=== PATIENT | male | born 1985 | race Two or more races ===

== ENCOUNTER 2023-10-26 12:03 | Emergency (ER) | payer OTHER, SELFPAY ==
--- NOTE | ~2023-10-26 | XR_ITS ---
EXAMINATION: XR HAND, LEFT CLINICAL INFORMATION: Left second metacarpophalangeal swelling. Cat bite. COMPARISON: None available. TECHNIQUE: PA, lateral, and oblique views of the left hand. FINDINGS: Mild soft tissue swelling of the second digit. No radiopaque foreign body or abnormal soft tissue calcification. No acute fracture or dislocation. Normal carpal alignment. No concerning lytic or blastic osseous lesion. No periosteal reaction or cortical erosion. XR/XR hand LT min 3V IMPRESSION: Mild soft tissue swelling of the second digit. No radiopaque foreign body or abnormal soft tissue calcification.
[2023-10-26 12:42] VITALS: BP 146/85; PULSE 100; RESP 16; TEMP 37.1; O2SAT 99; BMI 25.3
--- NOTE | 2023-10-26 12:43 | ED_ITS ---
HPI - General Adult General Chief complaint: Animal Bite Stated complaint: Cat bite Time Seen by Provider: 10/26/23 15:41 Source: patient Mode of arrival: ambulatory Limitations: no limitations History of Present Illness HPI narrative: Patient is a 38 year old assigned male at with no reported medical history presenting to the emergency department today with bilateral hand cat bites and scratches. Patient states that on 10/24/2023 he was bit and scratched by a cat on both hands. Patient states that he does not know if he is up to date on tetanus and if the cat is up to date on rabies. Patient denies any dizziness, lightheadedness, abdominal pain, nausea, vomiting, fever, chills, blurry vision, double vision, loss of vision, chest pain, difficulty breathing, shortness of breath, back pain, night sweats, pain with urination, increased urinary frequency, increased urinary urgency, blood in his urine or stool, syncope or a near syncopal episode, bowel incontinence, bladder incontinence, bowel retentio n, bladder retention, or any other complaints at this time. Onset (ago): day(s) (2) Location: left, right and upper extremity Severity: mild Severity scale (1-10): 4 Quality: aching and dull Pain Consistency: constant Relieving factors: none Exacerbating factors: none Associated symptoms: denies other symptoms Treatments prior to arrival: none Related Data Previous Rx's ?Medication ?Instructions ?Recorded amoxicillin 875 mg-potassium 1 tab PO BID 10 days #20 tabs 10/26/23 clavulanate 125 mg tablet Allergies Allergy/AdvReac Type Severity Reaction Status Date / Time No Known Allergies Allergy Verified 10/26/23 12:46 Review of Systems Constitutional: Constitutional: Reports no additional constitutional complaints, Denies chills, Denies fever(s) and Denies night sweats Eyes: Eyes: Reports no additional eye complaints, Denies blurry vision, Denies change in vision, Denies diplopia, Denies eye discharge, Denies loss of vision and Denies eye pain ENT: Denies dizziness Cardiovascular: Cardiovascular: Reports no additional cardiovascular complaints, Denies chest pain, Denies lightheadedness, Denies Loss of Consciousness and Denies dyspnea Respiratory: Respiratory: Reports no additional respiratory complaints and Denies dyspnea Gastrointestinal: Gastrointestinal: Reports no additional gastrointestinal complaints, Denies abdominal pain, Denies melena, Denies hematochezia, Denies change in bowel habits and Denies change in stool character Genitourinary: Genitourinary: Reports no additional male genitourinary complaints, Denies hematuria, Denies oliguria, Denies difficulty urinating, Denies dysuria, Denies urinary frequency, Denies urinary hesitancy, Denies urinary incontinence and Denies urinary urgency Musculoskeletal: Musculoskeletal: Reports no additional musculoskeletal complaints, Denies numbness and Denies tingling Comments: bilateral hand cat scratches and bites Neurologic: Denies dizziness, Denies loss of vision, Denies numbness and Denies tingling Psychiatric: Psychiatric: Reports no additional psychiatric complaints Endocrine: Endocrine: Reports no additional endocrine complaints Hematologic/Lymphatic: Hematologic/Lymphatic: Reports no additional hematologic/lymphatic complaints Allergic/Immunologic: Allergic/Immunologic: Reports no additional allergic/immunologic complaints PMFSH Past Medical History Attestation statement: The following information was validated with the patient. Source: old records reviewed and nursing notes reviewed Social History Social History Advance Directives: No Advance Directives Information Provided: No Physical Exam ED Vital Signs: Vital Signs - 24 hr 10/26/23 12:42 10/26/23 14:00 Temperature 98.7 F 97.9 F Pulse Rate 100 75 Respiratory Rate 16 16 Blood Pressure 146/85 H 131/81 Pulse Oximetry 99 100 Oxygen Delivery Method Room Air Room Air BMI result Body Mass Index 25.3 Const General: cooperative, no acute distress, alert and awake Nutritional Appearance: well nourished Orientation/consciousness: patient oriented x3 Limitations: no limitations [facility] Head: Yes normal to inspection and Yes atraumatic Ears: hearing grossly normal bilaterally and external ears normal General nose exam: Normal external nose present, no nasal discharge noted and no epistaxis Face and sinus: Yes normal facial exam, No abrasion and No laceration Mouth: Normal oral and palatal mucosa present, no drooling and no muffled voice Eyes General: appearance normal, both eyes and all related structures Periorbital: periorbital findings normal Eyelids: Yes eyelids normal Conjunctivae: conjunctivae normal Pupils: Equal, round and reactive pupils present EOM: EOMs intact bilaterally Neck Neck: Yes normal visual inspection, Yes full ROM and Yes no lymphadenopathy Chest Chest palpation & inspection: normal inspection of the chest Resp Effort & Inspection: normal respiratory effort and able to speak in complete sentences GI Inspection: Yes normal to inspection Neuro General: patient oriented x3 and moves all extremities Cranial nerves: Yes Equal, round and reactive pupils present Cognition (Neuro): normal cognition Motor exam (neuro): 5/5 motor strength present throughout Sensory Exam: Normal double simultaneous stimulation for sensation Coordination: [id number] test normal Extrem Other: multiple cat scratches and bites to the bilateral dorsal and jessica hands - mild erythema around the scratch to the dorsal left MCP General: Yes full ROM and Yes capillary refill normal Psych Appearance: grossly normal Mental Status: mental status grossly normal Affect: normal affect Attitude: cooperative Thought process: Normal thought process present Thought content: Normal thought content present Insight: Good insight present (Psych) Course Course Course Narrative: This is a rapid medical exam performed by Bal Seymour NP: Additional HPI, ROS, PE not included below will be deferred to primary provider. Patient is a 38-year-old right hand dominant male presenting to the ED with complaint of cat bite to left hand and cat scratches to right hand which occurred on Tuesday. States it was a stray on his porch and the cat bit him when he picked it up and tried to get rid of it. Has never seen the cat before or since. Unsure last Tdap. Denies fevers. Scratches to right palm, erythema and swelling to 2nd MCP joint of left hand, unable to fully flex 2nd finger. Plan: Tdap, rabies vaccine and immunoglobulin, xray Medical Decision Making Medical Decision Making MDM Narrative: Patient is a 38 year old assigned male at with no reported medical history presenting to the emergency department today with bilateral hand cat scratches and bites. Patient's physical exam was as noted in the physical exam portion of this note. Patient's left hand x-ray showed no acute process. I explained my physical exam findings as well as all test results to the patient. I answered all questions asked by the patient. Patient was brought up to date on tetanus and his rabies series started. Patient was given hsi first dose of augmentin while in the department. I stressed the importance of the patient taking his medication as prescribed. I stressed the importance of the patient following up with his primary care provider. I stressed the importance of the patient returning to the emergency department immediately if his symptoms were to worsen or if he were to develop any dizziness, shortness of breath, difficulty breathing, chest pain, blurry vision, loss of vision, nausea, vomiting, abdomina l pain, fever, chills, back pain, or any other complaints. Patient verbalized agreement and understanding with this treatment plan and discharge. Differential Diagnosis Differential Diagnoses: The differential diagnosis associated with the presentation includes Cat bite Cat scratch Bilateral hand pain Rabies exposure Admission/Observation Consideration of admission/observation: Escalation of care including admission/observation considered Patient would have been admitted to the hospital had his work up had any findings where hospital admission was appropriate and his clinical presentation warranted hospital admission. Independent Interpretation I performed an independent interpretation of an: Plain X-Ray Interpretation: My interpretation is in agreement with the radiologist's impression of this imaging study. EXAMINATION: XR HAND, LEFT CLINICAL INFORMATION: Left second metacarpophalangeal swelling. Cat bite. COMPARISON: None available. TECHNIQUE: PA, lateral, and oblique views of the left hand. FINDINGS: Mild soft tissue swelling of the second digit. No radiopaque foreign body or abnormal soft tissue calcification. No acute fracture or dislocation. Normal carpal alignment. No concerning lytic or blastic osseous lesion. No periosteal reaction or cortical erosion. XR/XR hand LT min 3V IMPRESSION: Mild soft tissue swelling of the second digit. No radiopaque foreign body or abnormal soft tissue calcification. Dictated By: Wiliam Dover MD Signed By: Electronically signed by Wiliam Dover MD 10/26/23 1928 Radiology Impression Discussion of test interpretation with radiology: I have reviewed the radiologist's reading. Prescription Management I considered prescription management with: Antibiotic (patient prescribed an antibiotic for cat bites/scratches) Discharge Plan Discharge Clinical Impression: Cat bite, Bite by animal, Exposure to rabies Patient Disposition: Home, Self-Care Instructions: Animal Bite (ED), Rabies (ED) Additional Instructions: Take your antibiotic as prescribed. Follow up with your primary care provider. Return to the emergency department immediately if your symptoms worsen or if you develop any dizziness, shortness of breath, difficulty breathing, chest pain, blurry vision, loss of vision, nausea, vomiting, abdominal pain, fever, chills, back pain, or any other complaints. You should get a call from the Infusion Center to schedule an appointment to receive the remainder of your required Rabies Vaccines. You will need a total of 3 more injections. If for some reason you do not receive a call from the infusion center - please call them at [phone]. Follow up with your primary care provider after completion of the vaccine to have a titer drawn to ensure t he vaccines effectiveness. Prescriptions: New amoxicillin-pot clavulanate 875-125 mg tablet 1 tab PO BID 10 Days Qty: 20 0RF Referrals: [facility] Family Medicine [Provider Group] (Call to establish and follow up with a primary care provider. If you already have a primary care provider, please follow up with them.) [facility] [Provider Group] [facility] [Provider Group] Stand Alone Forms: Work/School Release Print Language: Omani
[2023-10-26 14:00] VITALS: BP 131/81; PULSE 75; RESP 16; TEMP 36.6; O2SAT 100
--- OUTSIDE RECORDS SUMMARY | 2023-10-26 15:47 | XMS_ITS | Continuity of Care Document ---
Author Organization [facility] Address [address] [place] [address]- Care Team Providers Care Data Entry Supervisor Name Role Phone Not on Staff, PCP Primary Care Physician Unavail able Encounter [facility] Date(s): 05/15/20 - 06/14/20 [facility]/[address] [address]- Allergies, Adverse Reactions, Alerts Substance Reaction Severity Status NKA Active Immunizations Given and Recorded Vaccine Date Status Refusal Reason tetanus/diphtheria/pertussis, acel(Tdap) 03/21/12 Given
[2023-10-26 16:00] VITALS: BP 118/73; PULSE 78; TEMP 36.6; O2SAT 99
[2023-10-26] MEDS: Diphth,Pertus(ACell),Tet Adult 0.5 ML SYRINGE IM (17:00)
[2023-10-26] MEDS: Rabies Vaccine, Human Diploid (Imovax) 1 ML VIAL IM (17:02)
[2023-10-26] MEDS: Amoxicillin/Potassium Clav 875 MG TABLET PO (17:06)
[2023-10-26] MEDS: Rabies Immune Globulin/PF 900 UNIT/3 ML VIAL 1788 UNIT IM (17:06)
--- NOTE | 2023-10-26 17:15 | PC.NURSE ---
tdap given R deltoid, rabies vaccine given L deltoid, hyper rab given in split dose between L and R vastus lateralis. pt tolerated well. PO abx given per AUG.
[2023-10-26 17:21] VITALS: BP 118/73; PULSE 78; RESP 16; TEMP 36.6; O2SAT 99
== END 2023-10-26 17:22 | disposition home or self-care (01) ==
PROVIDERS: Emergency Provider Emergency Medicine
DX: S61.432A Puncture wound without foreign body of left hand, initial encounter (principal); S61.431A Puncture wound without foreign body of right hand, initial encounter; W55.01XA Bitten by cat, initial encounter; Y93.89 Activity, other specified; Y92.9 Unspecified place or not applicable; Y99.9 Unspecified external cause status; Z20.3 Contact with and (suspected) exposure to rabies; Z23 Encounter for immunization
CPT/HCPCS: 73130; 90375; 90471; 90472; 90675; 90715; 96372; 99283; 99284

== ENCOUNTER 2023-11-09 13:00 | Outpatient (RCR) | payer OTHER, SELFPAY ==
[2023-10-28 12:45] VITALS: BP 133/76; PULSE 98; RESP 18; TEMP 36.6; O2SAT 100; BMI 24.0
[2023-10-28] MEDS: Rabies Vaccine, Human Diploid (Imovax) 1 ML VIAL IM (12:55)
[2023-11-02 14:20] VITALS: BP 127/75; PULSE 102; RESP 16; TEMP 37.4; O2SAT 97
[2023-11-02] MEDS: Rabies Vaccine, Human Diploid (Imovax) 1 ML VIAL IM (14:25)
[2023-11-09 13:10] VITALS: BP 115/73; PULSE 97; RESP 16; TEMP 37.3; O2SAT 98
[2023-11-09] MEDS: Rabies Vaccine, Human Diploid (Imovax) 1 ML VIAL IM (13:12)
== END 2023-11-09 13:18 | disposition home or self-care (01) ==
LOC: HO.INF 13:00
PROVIDERS: Visit Provider Physician Assistant Medical
DX: Z20.3 Contact with and (suspected) exposure to rabies (principal)
CPT/HCPCS: 90471; 90675